=== PATIENT | female | born 1940 | race Caucasian/White ===

== ENCOUNTER → 2017-03-14 | Outpatient (CLI) | payer MEDICARE ==
--- NOTE | 2017-03-15 15:58 | RAD ---
DATE: 03/14/2017 EXAM: MAMMO ALEE SCREENING BILATERAL Bilateral Screening Digital 2D and 3D Mammogram HISTORY: Screening Mammogram COMPARISON: Screening mammogram 03/14/2016, 03/13/2015, 03/10/2014 This study was interpreted with the benefit of Computerized Aided Detection (CAD). The breast parenchyma shows scattered fibroglandular densities. Breast parenchyma level B. FINDINGS: Bilateral digital 2-D and 3-D tomosynthesis CC and MLO views. There is stable small benign-appearing bilateral circumscribed masses. No suspicious mass, calcification or architectural distortion. No significant change from prior examination IMPRESSION: No mammographic evidence of malignancy. Recommend routine screening mammogram in 12 months. BI-RADS CATEGORY: 2 BENIGN FINDING(S) RECOMMENDED FOLLOW-UP: 12M 12 MONTH FOLLOW-UP PQRS compliance statement: Patient information was entered into a reminder system with a target due date for the next mammogram. Mammography is a sensitive method for finding small breast cancers, but it does not detect them all and is not a substitute for careful clinical examination. A negative mammogram does not negate a clinically suspicious finding and should not result in delay in biopsying a clinically suspicious abnormality. "Our facility is accredited by the [employer] Mammography [employer]."
== END | disposition home or self-care (01) ==
LOC: MAMMO 12:37
PROVIDERS: ATTEND Family Medicine
DX: Z12.31 Encounter for screening mammogram for malignant neoplasm of breast (principal)
CPT/HCPCS: 77063; G0202; 77067

== ENCOUNTER → 2018-03-20 | Outpatient (CLI) | payer MEDICARE ==
--- NOTE | 2018-03-20 16:30 | RAD ---
DATE: 03/20/2018 EXAM: MAMMO ALEE SCREENING BILATERAL HISTORY: Annual screening COMPARISON: 03/10/2014, 03/13/2015, 03/14/2016, 03/14/2017 mammographic exams This study was interpreted with the benefit of Computerized Aided Detection (CAD). Breast Density: SCATTERED The breast parenchyma shows scattered fibroglandular densities. Breast parenchyma level B. FINDINGS: Small masses are present and stable compared to the prior exam no suspicious calcifications or distortion. Benign calcifications are present. No new mass. IMPRESSION: Benign findings. BI-RADS CATEGORY: 2 BENIGN FINDING(S) RECOMMENDED FOLLOW-UP: 12M 12 MONTH FOLLOW-UP PQRS compliance statement: Patient information was entered into a reminder system with a target due date in one year for the next mammogram. Mammography is a sensitive method for finding small breast cancers, but it does not detect them all and is not a substitute for careful clinical examination. A negative mammogram does not negate a clinically suspicious finding and should not result in delay in biopsying a clinically suspicious abnormality. "Our facility is accredited by the [employer] Mammography [employer]."
== END | disposition home or self-care (01) ==
LOC: MAMMO 13:25
PROVIDERS: ATTEND Family Medicine
DX: Z12.31 Encounter for screening mammogram for malignant neoplasm of breast (principal)
CPT/HCPCS: 77063; 77067

== ENCOUNTER → 2019-03-21 | Outpatient (CLI) | payer MEDICARE ==
--- NOTE | 2019-03-22 10:55 | RAD ---
DATE: 03/21/2019. EXAM: MAMMO ALEE SCREENING BILATERAL. HISTORY: Routine mammographic screening. COMPARISON: 03/20/2018. This study was interpreted with the benefit of Computerized Aided Detection (CAD). FINDINGS: Breast Density: SCATTERED The breast parenchyma shows scattered fibroglandular densities. Breast parenchyma level B.. A cluster of nodules laterally on the right CC view likely have a very superior correlated on the MLO projection, partially included. Coarse calcifications are benign. Multiple nodules bilaterally are stable and likely benign. There is no suspicious on the left. BI-RADS CATEGORY: 0 INCOMPLETE: NEEDS ADDITIONAL IMAGING EVALUATION AND/OR PRIOR MAMMOGRAMS FOR COMPARISON.. RECOMMENDED FOLLOW-UP: ADD ADDITIONAL IMAGING. 1. Magnification of clustered calcifications laterally and superiorly on the right. PQRS compliance statement: Patient information was entered into a reminder system with a target due date (now) for the next mammogram. Mammography is a sensitive method for finding small breast cancers, but it does not detect them all and is not a substitute for careful clinical examination. A negative mammogram does not negate a clinically suspicious finding and should not result in delay in biopsying a clinically suspicious abnormality. "Our facility is accredited by the [employer] Mammography [employer]."
== END | disposition home or self-care (01) ==
LOC: MAMMO 11:07
PROVIDERS: ATTEND Family Medicine
DX: Z12.31 Encounter for screening mammogram for malignant neoplasm of breast (principal); N64.89 Other specified disorders of breast; N63.20 Unspecified lump in the left breast, unspecified quadrant; N63.10 Unspecified lump in the right breast, unspecified quadrant
CPT/HCPCS: 77063; 77067

== ENCOUNTER → 2019-03-27 | Outpatient (CLI) | payer MEDICARE ==
--- NOTE | 2019-03-27 20:19 | RAD ---
Study: 2-D diagnostic mammography-right breast INDICATION: Follow-up microcalcifications. COMPARISON: Most recently on 03/21/2019. TECHNIQUE: 2-D spot compression diagnostic mammographic views were obtained of the right breast utilizing digital acquisition and computer-aided detection. FINDINGS: A grouping of microcalcifications with rounded morphology are identified in the upper/outer quadrant of the right breast at the far posterior aspect. Several additional microcalcifications are redemonstrated scattered throughout the breast. When correlating across multiple comparisons, it appears as if this cluster of microcalcifications has been partially visualized over the course of several studies. Given the morphology of the microcalcifications and them seemingly being present previously, it is recommended that the patient undergo diagnostic right breast mammography to confirm stability in 6 months. IMPRESSION: Grouping of microcalcifications within the far posterior aspect of the upper/outer right breast. These are considered probably benign as these calcifications do appear to have been present across multiple comparison studies though only intermittently visualized given their far posterior location. It is recommended the patient return for right breast diagnostic mammography in 6 months. At that time, care must be made to include this region of the breast and this may warrant that 2D mammography be performed if this would allow for more of the breast to be imaged. Recommend full field of view images as well as spot magnification views at follow-up. BI-RADS Category 3: Probably Benign. Recommendations: Right breast diagnostic mammography in 6 months, as above. "Our facility is accredited by the [employer] Mammography [employer]."
== END | disposition home or self-care (01) ==
LOC: MAMMO 14:40
PROVIDERS: ATTEND Family Medicine
DX: R92.1 Mammographic calcification found on diagnostic imaging of breast (principal)
CPT/HCPCS: 77065

== ENCOUNTER → 2019-10-02 | Outpatient (CLI) | payer MEDICARE ==
--- NOTE | 2019-10-02 13:41 | RAD ---
DATE: 10/02/2019 1:00 PM EXAM: DIGITAL DIAGNOSTIC RT HISTORY: Six-month follow-up probably benign right breast calcifications.. COMPARISON: Right diagnostic mammogram of 03/27/2019, screening mammograms of 03/21/2019, 03/14/2017, 03/14/2016, 03/13/2015 and 03/10/2014 Magnification views of the right breast in the CC and MLO projections were obtained. A full-field right CC and MLO view were also obtained with 2-D technique.. This study was interpreted with the benefit of Computerized Aided Detection (CAD). FINDINGS: Breast Density: SCATTERED The breast parenchyma shows scattered fibroglandular densities. Breast parenchyma level B The cluster of calcifications in the posterior upper outer right breast are stable from 2013, consistent with a benign etiology. No suspicious masses, microcalcifications or architectural distortion is present to suggest malignancy . The visualized axilla is unremarkable. IMPRESSION: No mammographic evidence of malignancy. BI-RADS CATEGORY: 2 BENIGN FINDING(S) RECOMMENDED FOLLOW-UP: 6M 6 MONTH FOLLOW-UP Annual screening mammography is recommended, unless clinically indicated sooner based on symptoms or change in physical exam. She will be due for bilateral mammographic screening in 6 months.. PQRS compliance statement: Patient information was entered into a reminder system with a target due date 03/22/2020 for the next mammogram. Mammography is a sensitive method for finding small breast cancers, but it does not detect them all and is not a substitute for careful clinical examination. A negative mammogram does not negate a clinically suspicious finding and should not result in delay in biopsying a clinically suspicious abnormality. "Our facility is accredited by the [employer] Mammography [employer]."
== END | disposition home or self-care (01) ==
LOC: MAMMO 12:43
PROVIDERS: ATTEND Family Medicine
DX: R92.1 Mammographic calcification found on diagnostic imaging of breast (principal); I25.10 Atherosclerotic heart disease of native coronary artery without angina pectoris
CPT/HCPCS: 77065

== ENCOUNTER → 2020-05-25 | Outpatient (CLI) | payer MEDICARE ==
--- NOTE | 2020-05-26 13:29 | RAD ---
EXAMINATION: MG 2D BILAT SCREENING CLINICAL HISTORY: Routine screening TECHNIQUE: Digital craniocaudal and mediolateral oblique views of the bilateral breasts obtained. COMPARISON: 10/02/2019, 03/21/2019, 03/20/2018 BREAST COMPOSITION: There are scattered areas of fibroglandular density. FINDINGS: 6 mm asymmetry central left breast on cc view approximately 6.5 cm from the nipple without clear gino elate visualized on MLO view. This asymmetry is seen on prior exams, but now demonstrates more indist inct and potentially suspicious margins. No evidence of suspicious mass in the right breast. No evide nce of suspicious calcifications or areas of architectural distortion bilaterally. Stable grouped marla cifications in the posterior right breast on MLO view. IMPRESSION: Small asymmetry in the central left breast with indistinct margins as described. BI-RADS ASSESSMENT: Category 0: Incomplete - Need Additional Imaging Evaluation and/or Prior Mammograms for Comparison RECOMMENDATION: Recommend further evaluation with spot compression views of the left breast and possible targeted lef t breast ultrasound if indicated. PQRS compliance statement - Patient information was entered into a reminder system with a target due date for the next mammogram. "Our facility is accredited by the [employer] Mammography [employer]." Electronically signed by: Zeus Burdick DO (05/26/2020 1:27 PM) [id number]
== END ==
LOC: MAMMO 13:55
PROVIDERS: ATTEND Nurse Practitioner Family
DX: Z12.31 Encounter for screening mammogram for malignant neoplasm of breast (principal)
CPT/HCPCS: 77067

== ENCOUNTER → 2020-06-03 | Outpatient (CLI) | payer MEDICARE ==
--- NOTE | 2020-06-03 16:30 | RAD ---
Examination: Left digital diagnostic mammogram. INDICATION: 80-year-old woman recalled from screening for left breast asymmetry. COMPARISON: Bilateral screening mammograms of 05/25/2020, 03/21/2019. TECHNIQUE: Full field left ML view and spot compression left CC view were obtained. The full field ML view was reviewed with computer-aided detection. FINDINGS: Scattered fibroglandular densities. Nodular parenchymal pattern compatible with benign cystic change. The asymmetry recalled from screeni ng on additional views does not show any suspicious mammographic features with better defined margins on spot compression. No persistent mammographic abnormality. IMPRESSION: Benign findings on left digital diagnostic mammogram. No evidence of malignancy. BI-RADS Category 2 Benign findings Recommend return to mammographic screening next due in one year Electronically signed by: Julia Juarez MD (06/03/2020 4:28 PM) [id number]
== END ==
LOC: MAMMO 09:23
PROVIDERS: ATTEND Nurse Practitioner Family
DX: R92.8 Other abnormal and inconclusive findings on diagnostic imaging of breast (principal)
CPT/HCPCS: 77065

== ENCOUNTER → 2021-05-11 | Outpatient (CLI) | payer MEDICARE ==
--- NOTE | 2021-05-12 08:45 | CARD ---
MR#: [id number] Date of Study: 05/11/2021 Ordering Physician: BRIAN STANLEY, Referring Physician: BRIAN STANLEY, Tech: Carleen Loomis, [facility] APPROVED REPORT EXAM: Two-dimensional and M-mode echocardiogram with Doppler and color Doppler. Other Information Quality : AverageHR: 82bpm INDICATION Arrhythmia Tachy-arrhythmia RISK FACTORS Hypertension Hyperlipidemia asthma 2D DIMENSIONS RVDd3.8 (2.9-3.5cm)Left Atrium(2D)2.9 (1.6-4.0cm) IVSd0.9 (0.7-1.1cm)Aortic Root(2D)3.0 (2.0-3.7cm) LVDd4.5 (3.9-5.9cm)LVOT Diameter2.1 (1.8-2.4cm) PWd1.0 (0.7-1.1cm)LVDs3.3 (2.5-4.0cm) FS (%) 27.2 %SV49.4 ml LVEF(%)53.0 (>50%) Aortic Valve AoV Peak Boom.116.4cm/sAoV VTI22.3cm AO Peak GR.5.4mmHgLVOT Peak Boom.78.0cm/s LVOT VTI 17.64cmAO Mean GR.3mmHg YAMILA (VMAX)2.32rs2UNI (VTI)2.68cm2 Mitral Valve MV E Jrxinpkq85.6cm/sMV E Peak Gr.3mmHg MV DECEL [id number] A Crgsspcj93.6cm/s MV E Mean Gr.1mmHgE/A Ratio0.6 Pulmonary Valve PV Peak Qaficfxp46.9cm/sPV Peak Grad.2mmHg Tricuspid Valve TR P. Riongrgv136ri/sRAP [id number] TR Peak Gr.14mmHg LEFT VENTRICLE The left ventricle is normal size. There is normal left ventricular wall thickness. Left ventricle sy stolic function is normal. Ejection fraction is estimated at 50 to 55% Transmitral Doppler flow patte rn is Grade I-abnormal relaxation pattern. RIGHT VENTRICLE The right ventricle is normal size. There is normal right ventricular wall thickness. The right ventr icular systolic function is normal. ATRIA The left atrium size is normal. The right atrium size is normal. The interatrial septum is intact wit h no evidence for an atrial septal defect or patent foramen ovale as noted on 2-D or Doppler imaging. AORTIC VALVE The aortic valve is mildly to moderately thickened. Doppler and Color Flow revealed trace aortic regu rgitation. Calculated aortic valve area is 2.9 cm2 with maximum pressure gradient of 6 mmHg and mean pressure gradient of 3 mmHg. There is no significant aortic valvular stenosis. MITRAL VALVE The mitral valve is normal in structure and function. There is no evidence of mitral valve prolapse. There is no mitral valve stenosis. Doppler and Color Flow revealed no mitral valve regurgitation note d. TRICUSPID VALVE The tricuspid valve is normal in structure and function. Doppler and Color Flow revealed trace tricus pid regurgitation with an estimated PAP of 17 mmHg. There is no tricuspid valve stenosis. PULMONIC VALVE The pulmonic valve is not well visualized. Doppler and Color Flow revealed trace pulmonic valvular re gurgitation. GREAT VESSELS The aortic root is normal in size. The ascending aorta is normal in size. The IVC was not visualized. PERICARDIAL EFFUSION There is no evidence of significant pericardial effusion. Critical Notification Critical Value: No <Conclusion> Technically difficult study. Left ventricle systolic function is normal. Ejection fraction is estimated at 50 to 55% Transmitral Doppler flow pattern is Grade I-abnormal relaxation pattern. Trace tricuspid regurgitation with an estimated PAP of 17 mmHg. There is no evidence of significant pericardial effusion. Signed by : Howard Miguel, Electronically Approved : 05/12/2021 08:44:55
== END ==
LOC: ECHO 13:44
PROVIDERS: ATTEND Internal Medicine Cardiovascular Disease
DX: R00.0 Tachycardia, unspecified (principal)
CPT/HCPCS: 93306

== ENCOUNTER → 2021-07-13 | Outpatient (CLI) | payer MEDICARE ==
--- NOTE | 2021-07-13 17:41 | RAD ---
DATE: 07/13/2021 EXAM: MG 2D BILAT SCREENING HISTORY: Screening COMPARISON: 05/25/2020, 10/02/2019, 03/27/2019, 03/20/2020 This study was interpreted with the benefit of Computerized Aided Detection (CAD). Breast Density: SCATTERED The breast parenchyma shows scattered fibroglandular densities. Breast pare nchyma level B. FINDINGS: No suspicious mass, suspicious calcification, or architectural distortion. Multiple bilater al circumscribed nodular densities are stable from multiple prior exams. Bilateral benign-appearing c alcifications are also stable. IMPRESSION: No evidence of malignancy. BI-RADS CATEGORY: 2 BENIGN FINDING(S) RECOMMENDED FOLLOW-UP: 12M 12 MONTH FOLLOW-UP PQRS compliance statement: Patient information was entered into a reminder system with a target due d ate for the next mammogram. Mammography is a sensitive method for finding small breast cancers, but it does not detect them all a nd is not a substitute for careful clinical examination. A negative mammogram does not negate a clin ically suspicious finding and should not result in delay in biopsying a clinically suspicious abnorma lity. "Our facility is accredited by the [employer] Mammography Program." Electronically signed by: Nancy Duran MD (07/13/2021 5:38 PM) [id number]
== END ==
LOC: MAMMO 11:16
PROVIDERS: ATTEND Nurse Practitioner Family
DX: Z12.31 Encounter for screening mammogram for malignant neoplasm of breast (principal)
CPT/HCPCS: 77067